=== PATIENT | female | born 1940 ===

== ENCOUNTER 2024-01-20 16:27 | Inpatient (IN) ==
[2024-01-20 17:01] LABS: ABS Lymphocytes 0.6 10^3/uL (1.0-4.8); ABS Monocytes 0.5 10^3/uL (0.0-0.9); ABS Neutrophils 5.4 10^3/uL (1.5-7.6); ABS Nucleated RBC 0.01 10^3/ul; Eosinophil % 0.2 %; Hemoglobin 12.5 g/dL (11.5-14.3); Lymphocyte % 9.6 %; Mean Corpuscular Hemoglobin 27.7 pg (27-33); Mean Corpuscular Hgb Conc 32.9 g/dL (31-36); Mean Platelet Volume 11.4 fL (7.5-11.2); Nucleated Red Blood Cells % 0.2 %/100WBC (0.0-0.8); Platelet Count 118 10^3/uL (150-450); Red Blood Count 4.53 10^6/uL (3.63-4.92); Red Cell Distribution Width 15.6 % (12-17); White Blood Count 6.6 10^3/uL (3.8-11.8)
[2024-01-20 17:05] LABS: INR 0.94 (0.83-1.13)
[2024-01-20] MEDS: Iodixanol (CONTRAST) 320 MG/ML 100 ML SDV IV ONE (17:11)
[2024-01-20 18:00] LABS: ALT 32 U/L (7-52); Albumin/Globulin Ratio 1.4 (1-3); Alcohol, S < 13 mg/dL (<13); Alkaline Phosphatase 109 U/L (35-149); Blood Urea Nitrogen 28 mg/dL (6-24); CO2 Carbon Dioxide 29 mmol/L (22-32); Calcium 11.2 mg/dL (8.6-10.3); Chloride 106 mmol/L (101-111); Cholesterol 164 mg/dL; Creatinine, Serum 1.32 mg/dL (0.51-0.95); Globulin 2.9 g/dL (2-4); Glucose 111 mg/dL (70-100); HDL Cholesterol 84.1 mg/dL; LDL Cholesterol 62 mg/dL; Sodium 146 mmol/L (135-145); Total Bilirubin 0.5 mg/dL (0.2-1.0); Total Protein 6.9 g/dL (6.4-8.9); Triglycerides 89 mg/dL; eGFR CKD-EPI 39.8 (>60)
[2024-01-20] MEDS: NS 0.9% 500 ml BAG 500 ML IV ONE ×2 (18:07→19:36)
[2024-01-20] MEDS: cefTRIAXone 1 gm/50 mL D5W 1 GM/50 ML BAG IV ONE (18:07)
[2024-01-20 18:18] LABS: AST 30 U/L (13-39); Anion Gap 11 mmol/L (2-16); Direct Bilirubin 0.1 mg/dL (0.03-0.18); Indirect Bilirubin 0.4 mg/dL (0.3-1.0); Potassium 3.4 mmol/L (3.5-5.0)
[2024-01-20] MEDS: Morphine 2 MG/ML SYRINGE IV ONE (18:35)
[2024-01-20] MEDS ORDERED: LORazepam 2 mg VIAL 1 ml IV PUSH SCH (20:00)
[2024-01-20] MEDS ORDERED: Lorazepam PYXIS KEY PRN (20:02)
[2024-01-20] MEDS: Thiamine 100 MG/ML 2 ml VIAL (200 mg) IM ONE (21:04)
[2024-01-20] MEDS: Multivitamins/Minerals TAB PO SCH (21:04)
[2024-01-20] MEDS: Acetaminophen IV 1 GM/100ML 1,000 MG/100 ML BAG IV SCH (21:05)
[2024-01-20 22:17] LABS: Vitamin D Total 25(OH) 42.5 ng/mL (20-50)
[2024-01-20 23:04] LABS: Creatine Kinase 145 U/L (10-223)
[2024-01-21] MEDS: Potassium Chlor 20 meq TAB.ER PO ONE (00:52)
[2024-01-21 01:19] LABS: Urine Appearance Clear; Urine Bacteria Absent /HPF (Absent); Urine Bilirubin Negative (Negative); Urine Blood 1+ (Negative); Urine Color Light-Yellow; Urine Glucose Trace (Negative); Urine Ketones Negative (Negative); Urine Nitrite Negative (Negative); Urine Protein 1+ (>=30 mg/dL) (Negative); Urine Red Blood Cell 1+(3-5/hpf) /HPF (0-Trace); Urine Specific Gravity >1.050 (1.002-1.030); Urine Squamous Epithelial Cell Present /HPF (Absent); Urine Urobilinogen Negative (Negative); Urine White Blood Cell Trace(0-5/hpf) /HPF (0-Trace)
[2024-01-21 02:42] LABS: Calcium (PTH Intact) 9.4 mg/dL (8.6-10.3)
[2024-01-21 03:53] LABS: High Sensitivity Troponin 1 Hr 21 pg/mL (<15)
[2024-01-21 08:49] LABS: Hematocrit 34.5 % (35-45); Hemoglobin 11.3 g/dL (11.5-14.3); Mean Corpuscular Hemoglobin 27.3 pg (27-33); Mean Corpuscular Hgb Conc 32.7 g/dL (31-36); Mean Corpuscular Volume 83.6 fL (80-97); Red Blood Count 4.13 10^6/uL (3.63-4.92); Red Cell Distribution Width 15.6 % (12-17); White Blood Count 11.6 10^3/uL (3.8-11.8)
[2024-01-21] MEDS: Morphine 2 MG/ML SYRINGE IV PRN (08:53)
[2024-01-21 09:07] LABS: INR 0.98 (0.83-1.13)
[2024-01-21 09:21] LABS: Mean Platelet Volume 9.8 fL (7.5-11.2); Platelet Count 79 10^3/uL (150-450)
[2024-01-21 10:02] LABS: Calcium 9.4 mg/dL (8.6-10.3); Creatinine, Serum 1.02 mg/dL (0.51-0.95); Magnesium 1.7 mg/dL (1.9-2.7); Potassium 4.1 mmol/L (3.5-5.0); eGFR CKD-EPI 54.2 (>60)
[2024-01-21] MEDS: Lactated Ringers 1000 ml BAG 1,000 ML IV SCH ×2 (11:04→17:32)
[2024-01-21 11:14] LABS: TSH Ultra Thyroid Stim Horm 1.92 mcIU/mL (0.34-5.60)
[2024-01-21 11:25] LABS: Folate 13.99 ng/mL (5.90-24.80)
[2024-01-21] MEDS: KCL 20 MEQ/100 ML IVPREMIX 20 MEQ/100 ML BAG IV SCH (11:37)
[2024-01-21] MEDS: Potassium EFFERVES 25 meq TAB PO ONE (11:37)
[2024-01-21] MEDS ORDERED: ceFAZolin 2 GM in NS PREMIX 2 GM/100 ML BAG IVPB ONE (12:31)
[2024-01-21] MEDS ORDERED: Bupivacaine 0.5% SDV PF 30ML VIAL ONE (12:47)
[2024-01-21] MEDS ORDERED: Rocuronium 50 mg VIAL 10 mg/ml 5 ml VIAL (50 mg) ONE ×2 (12:59→13:53)
[2024-01-21] MEDS ORDERED: Propofol 10 MG/ML 20 ML BTL ONE (12:59)
[2024-01-21] MEDS ORDERED: Lidocaine 2% PF 5 ML VIAL ONE (12:59)
[2024-01-21] MEDS ORDERED: fentaNYL 100 mcg/2 ml 50 MCG/ML VIAL ONE (12:59)
[2024-01-21] MEDS ORDERED: Dexamethasone IV 4 MG/ML VIAL 1 ml VIAL ONE (13:57)
[2024-01-21] MEDS ORDERED: Ondansetron 4 mg VIAL 2 MG/ML 2 ml VIAL ONE (13:57)
[2024-01-21] MEDS ORDERED: HYDROmorphone 0.5 MG/0.5 ML SYRINGE ONE ×2 (14:03→14:04)
[2024-01-21] MEDS ORDERED: Acetaminophen IV 1 GM/100ML 1,000 MG/100 ML BAG IV ONE (14:18)
[2024-01-21] MEDS ORDERED: Artificial Tear OPHTH.OINT 3.5 GM ONE (15:11)
[2024-01-21] MEDS ORDERED: Glycopyrrolate IV 0.2 MG/ML 1 ML VIAL ONE (15:33)
[2024-01-21] MEDS ORDERED: Ondansetron 4 mg VIAL 2 MG/ML 2 ml VIAL IV PRN (15:35)
[2024-01-21] MEDS ORDERED: Magnesium Hydroxide LIQ 30 ML UDC PO PRN ×2 (15:35→15:42)
[2024-01-21] MEDS ORDERED: Senna TAB 8.6 mg TAB PO PRN (15:35)
[2024-01-21] MEDS ORDERED: Polyethylene Glycol 3350 17 GM PACKET PO PRN ×2 (15:35→15:42)
[2024-01-21] MEDS ORDERED: Propofol 0 MG/0 ML BTL ONE (16:45)
[2024-01-21] MEDS ORDERED: Magnesium Hydroxide LIQ 30 ML UDC PO SCH (21:00)
[2024-01-21] MEDS: ceFAZolin 1 GM ADVAN 1 GM in NS 0.9% 50 ML 50 ML IVPB SCH (21:04)
[2024-01-21] MEDS: Magnesium Hydroxide LIQ 30 ML UDC PO SCH (21:14)
[2024-01-21] MEDS: Acetaminophen IV 1 GM/100ML 1,000 MG/100 ML BAG IV SCH (21:41)
[2024-01-22] MEDS: Morphine 2 MG/ML SYRINGE IV PRN (01:01)
[2024-01-22] MEDS ORDERED: Lorazepam PYXIS KEY PRN (02:17)
[2024-01-22] MEDS: LORazepam 2 mg VIAL 1 ml IV PUSH ONE (02:25)
[2024-01-22 08:03] LABS: Albumin 2.9 g/dL (3.2-5.2); Albumin/Globulin Ratio 1.4 (1-3); Calcium 9.1 mg/dL (8.6-10.3); Creatinine, Serum 0.96 mg/dL (0.51-0.95); Globulin 2.1 g/dL (2-4); Magnesium 1.7 mg/dL (1.9-2.7); Potassium 4.4 mmol/L (3.5-5.0); Total Bilirubin 0.3 mg/dL (0.2-1.0); eGFR CKD-EPI 58.3 (>60)
[2024-01-22 08:25] LABS: Hematocrit 29.6 % (35-45); Hemoglobin 9.9 g/dL (11.5-14.3); Mean Platelet Volume 10.6 fL (7.5-11.2); Platelet Count 52 10^3/uL (150-450)
[2024-01-22] MEDS: Magnesium Sulfate 2 gm BAG 2 GM/50 ML BAG IVPB ONE (10:39)
[2024-01-22] MEDS ORDERED: Enoxaparin 40 MG/0.4 ML SYR SUBCUT SCH (12:00)
[2024-01-22] MEDS: Enoxaparin 40 MG/0.4 ML SYR SUBCUT SCH (13:21)
[2024-01-22] MEDS: Senna TAB 8.6 mg TAB PO PRN (21:20)
[2024-01-23 06:46] LABS: Calcium 8.9 mg/dL (8.6-10.3); Creatinine, Serum 0.99 mg/dL (0.51-0.95); Magnesium 2.3 mg/dL (1.9-2.7); eGFR CKD-EPI 56.2 (>60)
[2024-01-23 07:21] LABS: ABS Eosinophils 0.1 10^3/uL (0.0-0.5); ABS Lymphocytes 0.7 10^3/uL (1.0-4.8); ABS Monocytes 0.5 10^3/uL (0.0-0.9); ABS Neutrophils 5.6 10^3/uL (1.5-7.6); Eosinophil % 1.2 %; Hematocrit 32.2 % (35-45); Hemoglobin 10.7 g/dL (11.5-14.3); Lymphocyte % 9.6 %; Mean Corpuscular Hemoglobin 27.9 pg (27-33); Mean Corpuscular Hgb Conc 33.2 g/dL (31-36); Mean Corpuscular Volume 83.9 fL (80-97); Mean Platelet Volume 10.1 fL (7.5-11.2); Platelet Count 69 10^3/uL (150-450); Red Blood Count 3.83 10^6/uL (3.63-4.92); Red Cell Distribution Width 15.9 % (12-17); White Blood Count 6.9 10^3/uL (3.8-11.8)
[2024-01-24 06:43] LABS: Creatinine, Serum 0.91 mg/dL (0.51-0.95); Potassium 4.4 mmol/L (3.5-5.0); eGFR CKD-EPI 62.2 (>60)
[2024-01-24 08:13] LABS: ABS Eosinophils 0.2 10^3/uL (0.0-0.5); ABS Lymphocytes 0.7 10^3/uL (1.0-4.8); ABS Monocytes 0.5 10^3/uL (0.0-0.9); ABS Neutrophils 2.9 10^3/uL (1.5-7.6); Eosinophil % 3.7 %; Hematocrit 30.8 % (35-45); Hemoglobin 10.4 g/dL (11.5-14.3); Lymphocyte % 15.7 %; Mean Corpuscular Hemoglobin 28.3 pg (27-33); Mean Corpuscular Hgb Conc 33.7 g/dL (31-36); Mean Corpuscular Volume 84.1 fL (80-97); Mean Platelet Volume 10.3 fL (7.5-11.2); Nucleated Red Blood Cells % 0.1 %/100WBC (0.0-0.8); Platelet Count 70 10^3/uL (150-450); Red Blood Count 3.67 10^6/uL (3.63-4.92); Red Cell Distribution Width 15.8 % (12-17); White Blood Count 4.2 10^3/uL (3.8-11.8)
[2024-01-25 05:07] LABS: Hemoglobin 10.3 g/dL (11.5-14.3); Mean Corpuscular Hemoglobin 27.6 pg (27-33); Mean Corpuscular Hgb Conc 33.3 g/dL (31-36); Mean Corpuscular Volume 83.1 fL (80-97); Mean Platelet Volume 9.9 fL (7.5-11.2); Platelet Count 78 10^3/uL (150-450); Red Blood Count 3.73 10^6/uL (3.63-4.92); Red Cell Distribution Width 16.1 % (12-17); White Blood Count 4.1 10^3/uL (3.8-11.8)
[2024-01-25 06:29] LABS: ABS Eosinophils 0.2 10^3/uL (0.0-0.5); ABS Lymphocytes 0.8 10^3/uL (1.0-4.8); ABS Monocytes 0.5 10^3/uL (0.0-0.9); ABS Neutrophils 2.7 10^3/uL (1.5-7.6); ABS Nucleated RBC 0.01 10^3/ul; Eosinophil % 3.7 %; Giant Platelets Present; Large Platelets Present; Lymphocyte % 18.5 %; Nucleated Red Blood Cells % 0.2 %/100WBC (0.0-0.8)
[2024-01-27] MEDS: Magnesium Hydroxide LIQ 30 ML UDC PO SCH (13:47)
[2024-01-27] MEDS ORDERED: Magnesium Hydroxide LIQ 30 ML UDC PO SCH (21:00)
[2024-01-28 14:29] LABS: Rapid COVID-19 Molecular Undetected (Undetected)
[2024-01-29 10:22] VITALS: BP 100/57
== END 2024-01-29 12:40 | DRG 522 ==
LOC: ED 16:27 → SUATTDRO 19:46 → EDHOLD 19:46 → SSU 01-21 07:38
PROVIDERS: ADMIT Internal Medicine; ATTEND Internal Medicine